=== PATIENT | male | born 1950 | race Two or more races ===

== ENCOUNTER 2016-12-05 17:33 | Emergency (ER) | payer MEDICARE ==
[~2016-12-05] VITALS: Ht 167.6 cm; Wt 75.3 kg
[2016-12-05 18:30] VITALS: BP 152/90
[2016-12-05] MEDS ORDERED: BACITRACIN-POLYMYXIN B TOPICAL OINT UD TOP ONE ×2 (18:33→18:45)
[2016-12-05] MEDS ORDERED: TETANUS-DIPTH-ACEL PERTUSSIS 0.5ML SYRG IM ONE (18:45)
[2016-12-05] MEDS ORDERED: cefTRIAXone 1GM/50ML D5W 50 ML IV ONE (18:45)
== END 2016-12-05 21:00 | disposition home or self-care (01) ==
LOC: ER 17:49
DX: S01.311A Laceration without foreign body of right ear, initial encounter (principal); E11.9 Type 2 diabetes mellitus without complications; W22.8XXA Striking against or struck by other objects, initial encounter; Y93.89 Activity, other specified; Y99.8 Other external cause status; Y92.89 Other specified places as the place of occurrence of the external cause
CPT/HCPCS: 12011; 70450; 90471; 90715; 94761; 96365; 99284; J0696